=== PATIENT | female | born 2000 | race Hispanic/Latino ===

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

== ENCOUNTER 2022-06-11 18:56 | Emergency (ER) | payer SELFPAY | END 2022-06-11 19:40 | disposition home or self-care (01) | LOC: ERS 18:56 | DX: J45.901 Unspecified asthma with (acute) exacerbation (principal) | CPT/HCPCS: 71045 ==